=== PATIENT | male | born 1995 | race Hispanic/Latino ===

== ENCOUNTER 2020-05-07 13:24 | Emergency (ER) | payer OTHER ==
[2020-05-07] MEDS ORDERED: HALOPERIDOL 5MG/ML VIAL (J1630 PER 1) IV STA (13:29)
[2020-05-07] MEDS ORDERED: NS 1,000 ML IV ONE ×3 (13:30→15:15)
[2020-05-07 14:24] LABS: ACETAMINOPHEN LEVEL < 2.0 UG/ML (10.0-30.0); ALBUMIN 4.5 GM/DL (3.2-5.2); ALT/SGPT 80 U/L (12-78); BILIRUBIN,DIRECT 0.1 MG/DL (0.0-0.2); BILIRUBIN,TOTAL 0.7 MG/DL (0.2-1.0); BLOOD UREA NITROGEN 12 MG/DL (7-18); CALCIUM LEVEL 9.8 MG/DL (8.5-10.1); CARBON DIOXIDE LEVEL 22 MEQ/L (21-32); CHLORIDE LEVEL 103 MEQ/L (98-107); CPK CREATINE PHOSPHOKINASE 405 U/L (39-308); CREATININE FOR GFR 1.49 MG/DL (0.70-1.30); ETHYL ALCOHOL (ETHANOL) < 0.003 % (0.000-0.010); GLOMERULAR FILTRATION RATE > 60.0 (>60); GLUCOSE, FASTING 193 MG/DL (70-100); POTASSIUM SERUM 3.7 MEQ/L (3.5-5.1); SALICYLATE LEVEL < 1.7 MG/DL (5.0-30.0); SODIUM LEVEL 137 MEQ/L (136-145); TOTAL PROTEIN 8.4 GM/DL (6.4-8.2)
[2020-05-07 14:25] LABS: BASO % 0.2 % (0.0-1.0); EOS % 0.3 % (0.0-3.0); HEMATOCRIT 41.9 % (42.0-52.0); HEMOGLOBIN 15.1 g/dl (13.5-17.5); LYMPH # 1.1 10^3/uL (1.5-5.0); LYMPH % 8.1 % (24.0-44.0); MEAN CORPUSCULAR HEMOGLOBIN 29.2 pg (27.0-33.0); MONO # 0.5 10^3/uL (0.0-0.8); MONO % 3.8 % (0.0-5.0); NEUTROPHILS # 11.5 10^3/uL (1.5-8.5); PLATELET COUNT, AUTOMATED 202 10^3/uL (150-450); RED BLOOD COUNT 5.17 10^6/uL (4.30-6.10); WHITE BLOOD COUNT 13.2 10^3/uL (4.0-10.0)
--- NOTE | 2020-05-07 14:49 | REPVR ---
PROCEDURE INFORMATION: Exam: CT Head Without Contrast Exam date and time: 05/07/2020 2:35 PM Age: 24 years old Clinical indication: Alteration of consciousness; Other: Drug overdose TECHNIQUE: Imaging protocol: Computed tomography of the head without contrast. Radiation optimization: All CT scans at this facility use at least one of these dose optimization techniques: automated exposure control; mA and/or kV adjustment per patient size (includes targeted exams where dose is matched to clinical indication); or iterative reconstruction. COMPARISON: No relevant prior studies available. FINDINGS: Brain: Examination of the brain demonstrates normal structure and attenuation.The cortical chance / white matter interfaces are preserved throughout the brain.No acute infarction, masses or hemorrhage is seen. Ventricles: The ventricular system is not dilated and is appropriate for the patient's age. Bones/joints: Unremarkable. No acute fracture. Sinuses: Visualized sinuses are unremarkable. No fluid levels. Mastoid air cells: Visualized mastoid air cells are well aerated. Soft tissues: Unremarkable. IMPRESSION: No acute infarction, masses or hemorrhage is seen. No acute intracranial abnormality is identified. Electronically signed by: Shai Ayala On 05/07/2020 14:49:45 PM
--- NOTE | 2020-05-07 14:51 | REPVR ---
PROCEDURE INFORMATION: Exam: CT Cervical Spine Without Contrast Exam date and time: 05/07/2020 2:35 PM Age: 24 years old Clinical indication: Other: Drug overdose TECHNIQUE: Imaging protocol: Computed tomography images of the cervical spine without contrast. Radiation optimization: All CT scans at this facility use at least one of these dose optimization techniques: automated exposure control; mA and/or kV adjustment per patient size (includes targeted exams where dose is matched to clinical indication); or iterative reconstruction. COMPARISON: No relevant prior studies available. FINDINGS: Vertebrae: The cervical vertebral bodies are normal height and alignment.No acute fracture or dislocation is seen. Discs/Spinal canal/Neural foramina: The atlantoaxial articulation is normal. There is no significant degenerative disc herniation . There is no evidence of spinal canal narrowing.There is no evidence of foraminal stenosis. Epidural space: There is no evidence of epidural masses or hemorrhage. Prevertebral Space: The prevertebral soft tissues appear normal. Soft tissues: There are no soft tissue masses or fluid collections. Lungs: Lung apices are normal. Other findings: The study is slightly limited due to rotation. IMPRESSION: 1. No acute fracture or dislocation is seen. 2. The study is slightly limited due to rotation. Electronically signed by: Shai Ayala On 05/07/2020 14:51:37 PM
[2020-05-07 16:17] LABS: AMPHETAMINES LEVEL URINE NEGATIVE (NEGATIVE); BARBITURATES URINE NEGATIVE (NEGATIVE); BENZODIAZEPINES URINE POSITIVE (NEGATIVE); CANNABINOIDS URINE NEGATIVE (NEGATIVE); COCAINE METABOLITE URINE NEGATIVE (NEGATIVE); METHADONE URINE NEGATIVE (NEGATIVE); OPIATES URINE NEGATIVE (NEGATIVE); PHENCYCLIDINE URINE NEGATIVE (NEGATIVE)
[2020-05-07 16:34] VITALS: BP 156/86
--- NOTE | 2020-05-15 10:15 | ECGEPIP ---
[facility] - ED Test Date: 2020-05-07 Pat Name: MAURO VEGAS Department: Room: - Gender: Male Hoistman: COLLIN : 1995 Requested By: NIKOLAS VASQUEZ Order Number: [id number] Reading MD: Moises Mansfield-Eric Measurements Intervals [place] Rate: 137 P: 56 [place]: 160 QRS: 86 QRSD: 92 T: 56 QT: 354 QTc: 536 Interpretive Statements SINUS TACHYCARDIA NONSPECIFIC T-WAVE ABNORMALITY ABNORMAL RHYTHM ECG NO PRIOR DUE TO DOWNTIME SEE SCANNED DOWNTIME REPORT
== END 2020-05-07 16:53 | disposition home or self-care (01) ==
LOC: M ED 13:24
DX: F15.188 Other stimulant abuse with other stimulant-induced disorder (principal)
CPT/HCPCS: 70450; 72125; 80048; 80076; 80307; 82550; 84443; 85025; 93005; 93041; 94760; 96361; 96374; 99285; G0480; J1630